=== PATIENT | female | born 1990 | race Caucasian/White ===

== ENCOUNTER 2017-04-18 05:25 | Inpatient (IN) | payer OTHER ==
[~2017-04-18 05:25] MED LIST: Sodium Chloride 0.9% 10 ML Syringe FLUSH PRN
[2017-04-18] MEDS: Lactated Ringers 1,000 ML IV SCH ×2 (05:55→06:35)
[2017-04-18] MEDS ORDERED: Metoclopramide 10 MG/2 ML SDV IVPUSH ONE (06:45)
[2017-04-18] MEDS ORDERED: Citric Acid/Sodium Citrate Solution 30 ML Cup PO ONE (06:45)
[2017-04-18] MEDS ORDERED: Bupivacaine 0.5% 30 ML SDV ONE (06:50)
[2017-04-18] MEDS ORDERED: Morphine PF 10 MG/10 ML SDV ONE (06:52)
--- NOTE | 2017-04-18 07:02 | PCM.PREANE ---
Preanesthetic Assessment - Anesthesia/Transfusion/Family Hx Anesthesia History: Prior Anesthesia Without Reaction Family History of Anesthesia Reaction: No Transfusion History: No Prior Transfusion(s) Intubation History: Unknown - Review of Systems General: No Symptoms Pulmonary: No Symptoms Cardiovascular: No Symptoms Gastrointestinal: No Symptoms (GERD) Neurological: No Symptoms Other: Reports: Diabetes (Gestational DM on glyburide am blood sugar=76) - Physical Assessment NPO Status Date: 04/17/17 NPO Status Time: 21:00 Pulse: 102 O2 Sat by Pulse Oximetry: 98 Respiratory Rate: 14 Blood Pressure: 120/75 Temperature: 37.0 C Vital Signs: Last Vital Signs Temp 37.0 C 04/18/17 05:40 Pulse 102 H 04/18/17 05:40 Resp 14 04/18/17 05:40 BP 120/75 04/18/17 05:40 Pulse Ox 98 04/18/17 05:40 Height: 1.52 m Weight: 91.626 kg ASA Class: 2 Mental Status: Alert & Oriented x3 Airway Class: Mallampati = 2 Dentition: Reports: Normal Dentition (bottom permanent retainer noted.), Caries Thyro-Mental Finger Breadths: 3 Mouth Opening Finger Breadths: 3 ROM/Head Extension: Full Lungs: Clear to Auscultation, Normal Respiratory Effort Cardiovascular: Regular Rate, Regular Rhythm, No Murmurs - Lab Values: Laboratory Last Values WBC 10.07 K/mm3 (3.98-10.04) H 04/17/17 10:50 RBC 4.24 M/mm3 (3.98-5.22) 04/17/17 10:50 Hgb 11.3 gm/L (11.2-15.7) 04/17/17 10:50 Hct 34.5 % (34.1-44.9) 04/17/17 10:50 MCV 81.4 fl (79.4-94.8) 04/17/17 10:50 MCH 26.7 pg (25.6-32.2) 04/17/17 10:50 MCHC 32.8 g/dl (32.2-35.5) 04/17/17 10:50 RDW Std Deviation 44.0 fL (36.4-46.3) 04/17/17 10:50 Plt Count 280 K/mm3 (182-369) 04/17/17 10:50 MPV 10.0 fl (9.4-12.3) 04/17/17 10:50 Neut % (Auto) 76.8 % (34.0-71.1) H 04/17/17 10:50 Lymph % (Auto) 16.3 % (19.3-51.7) L 04/17/17 10:50 [place] % (Auto) 6.2 % (4.7-12.5) 04/17/17 10:50 Eos % (Auto) 0.3 (0.7-5.8) L 04/17/17 10:50 Baso % (Auto) 0.1 % (0.1-1.2) 04/17/17 10:50 Neut # (Auto) 7.74 K/mm3 (1.56-6.13) H 04/17/17 10:50 Lymph # (Auto) 1.64 K/mm3 (1.18-3.74) 04/17/17 10:50 [place] # (Auto) 0.62 K/mm3 (0.24-0.36) H 04/17/17 10:50 Eos # (Auto) 0.03 K/mm3 (0.04-0.36) L 04/17/17 10:50 Baso # (Auto) 0.01 K/mm3 (0.01-0.08) 04/17/17 10:50 POC Glucose 76 mg/dL (70-105) 04/18/17 05:43 Blood Type O POSITIVE 04/17/17 10:50 Gel Antibody Screen Negative 04/17/17 10:50 Above labs reviewed and noted. 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: - Past Surgical History HEENT Surgical History: Reports: None - SUBSTANCE USE Smoking Status *Q: Never Smoker Tobacco Use Within Last Twelve Months: No Second Hand Smoke Exposure: No Days Per Week of Alcohol Use: 0 Recreational Drug Use History: No - HOME MEDS Home Medications: Home Meds Pnv No.122/Iron/Folic Acid [ Multi Tablet] 1 each PO DAILY 04/17/17 [ History] glyBURIDE [Glyburide] 2.5 mg PO BEDTIME 04/17/17 [History] - CURRENT (IN HOUSE) MEDS Current Meds: Current Medications Cefazolin Sodium/Dextrose 2 gm (/ Premix) 50 mls @ 100 mls/hr IV ONETIME ONE Stop: 04/18/17 08:14 Lactated Ringer's (Ringers, Lactated) 1,000 mls @ 125 mls/hr IV ASDIRECTED VANDANA Last Admin: 04/18/17 06:35 Dose: 125 mls/hr Oxytocin/Lactated Ringer's (Pitocin In Lr 10 Units/1,000 Ml) 10 unit in 1,000 mls @ 100 mls/hr IV ASDIRECTED VANDANA Sodium Chloride (Saline Flush) 10 ml FLUSH ASDIRECTED PRN PRN Reason: Keep Vein Open Discontinued Medications Citric Acid/Sodium Citrate (Bicitra Solution) 30 ml PO ONETIME ONE Stop: 04/18/17 06:46 Metoclopramide HCl (Reglan) 10 mg IVPUSH ONETIME ONE Stop: 04/18/17 06:46 Morphine Sulfate (Duramorph Pf) Confirm Administered Dose 10 mg .ROUTE .STK-MED ONE Stop: 04/18/17 06:53
[2017-04-18] MEDS ORDERED: Phenylephrine 1% 10 MG/ML SDV ONE (07:32)
[2017-04-18] MEDS ORDERED: Oxytocin 10 Units/1 ML SDV ONE (07:32)
[2017-04-18] MEDS ORDERED: Ondansetron 4 MG/2 ML SDV ONE (07:32)
[2017-04-18] MEDS ORDERED: ceFAZolin 1 GM Vial ONE (07:32)
[2017-04-18] MEDS ORDERED: Ketorolac 30 MG/ML SDV ONE (07:32)
[2017-04-18] MEDS ORDERED: Lactated Ringers 1,000 ML ONE (07:32)
--- NOTE | 2017-04-18 07:41 | HP ---
DATE OF ADMISSION: 04/18/2017 ADMISSION DIAGNOSIS: Term intrauterine , history of previous section with desire for repeat section. HISTORY OF PRESENT ILLNESS: The patient is a 27-year-old, 7 para 2-0-4-2, white female, who is admitted on 04/18/2017 for elective repeat section. She is 39 and 0/7th weeks gestational age with an YOKO of 04/25/2017 as based upon an ultrasound done at 9 and 0/7th weeks gestational age on 09/20/2016. This is supported by 2 other ultrasounds done on 10/11/2016 and 12/07/2016. She is admitted for elective repeat section. She has had 2 previous sections. The procedure, risks, benefits, and alternatives of care are discussed in detail with the patient. She appears to understand and wishes to proceed. A consent has been signed. 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 Menses are somewhat irregular. Not on control at the time of conception. Her last period was known. Her pregnancies include a full-term delivered on 01/25/2011 at 40 weeks' gestational age - 6 pounds 7 ounces - female, delivered in [place]. Child's name is Katharina. She had a for failure to progress after an induction. The patient had 3 miscarriages at 4 weeks, 12 weeks, and 4 weeks, in 06/2011, 09/2011 and in 03/2014. On 08/07/2014, the patient had a demise and was induced for vaginal delivery at 15 weeks' gestational age. On 08/10/2015, she delivered an 8 pounds 4 ounces male infant at 39 weeks' gestational age by repeat section. Child's name is Yannick Chen. The patient's course has been relatively unremarkable with the exception that she is a gestational diabetic and is reasonably well controlled on glyburide. She takes glyburide on a daily basis, 2.5 mg per day. The patient declined genetic evaluation. Her [place] Depression Screen score on 12/13/2016 was 2/30. She has history of Gardnerella vaginalis during - this was treated. She is group B strep negative. She has a history of 4 miscarriages as above. She is rubella nonimmune and MMR is recommended prior to discharge from the hospital. She was started on glyburide on 03/01/2017 for progressively worsening blood sugars with her gestational diabetes. The patient was first seen during her care on 10/11/2016 at 12 weeks' gestation. She is seen on a regular basis. Her weight gain was from 183 pounds up to 203 pounds for a 20-pound weight gain. Her vital signs were stable throughout the course, and her fundal height growth was appropriate. Towards the end, her blood sugars were in excellent control using glyburide and behavior modification with dietary restriction. Laboratory testing in showed her blood to be O positive and negative antibody screen. Her first visit labs showed a hemoglobin of 13.1 g/dL, platelets were 347. She was rubella nonimmune. RPR was nonreactive. Urine culture showed Gardnerella vaginalis for which she was treated. Her hepatitis B surface antigen and HIV assays were both negative. Second trimester laboratory testing showed a hemoglobin of 11.4 g/dL and platelets 300,000. Her 1-hour GTT was 150, and her 3-hour glucose tolerance test was abnormal with a fasting blood sugar of 104, a 1-hour glucose of 181, a 2-hour glucose of 151, and a 3-hour glucose of 124. Her group B strep screen is negative. PAST MEDICAL HISTORY: 1. Miscarriage x4. 2. History of infertility. PAST SURGICAL HISTORY: C-sections x2 in 2010 and 2016. FAMILY HISTORY: Positive for mother who is alive and well. Father is alive. One sister and one brother alive and well with children. Maternal grandmother secondary to lung cancer; she was a smoker. Maternal grandfather secondary to cancer - type unknown. Paternal grandmother with colon cancer - . Paternal grandfather , cause unknown. One sister has celiac disease since 2015. SOCIAL HISTORY: The patient is , is [employer] Work[employer]. 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 She is a high-school graduate. She does not smoke any tobacco. She does not take any alcohol or other drugs. They live in [place], [place]. REVIEW OF SYSTEMS: GENERAL: The patient is doing well. Baby has been active. SKIN: Negative. CARDIOVASCULAR: No shortness of breath or chest pain. RESPIRATORY: No infectious symptoms. BREASTS: Changes associated with only. GI: Negative. : Changes associated with term . MUSCULOSKELETAL: Occasional edema in the lower extremities. NEUROLOGICAL: Negative. PHYSICAL EXAMINATION: VITAL SIGNS: On last evaluation in , her blood pressure was 100/66. Weight was 203 with pregravid weight of 183. heart rate was 154. Her height upon admission for care was 5 feet 0 and weight was 185. Body mass index prepregnancy was 35.7. GENERAL: The patient is a well-developed, well-nourished, pleasant female of stated age, in no acute distress. SKIN: Warm, dry, without lesions. HEENT, NECK, AND BACK: Within normal limits. LUNGS: Clear with good breath sounds in all lung shea. CARDIOVASCULAR: Shows regular rate and rhythm without murmurs. BREASTS: Deferred having been done at first visit and found to be normal. ABDOMEN: Protuberant with with last fundal height 39+ cm. Baby in a vertex presentation by Hardeep maneuvers. : Her last cervical exam was done on 03/27/2017 and shows cervix to be closed, long, posterior and firm. EXTREMITIES: Show no significant edema. NEUROLOGICAL: Grossly within normal limits. ASSESSMENT: 1. Term intrauterine at 39 weeks and 0 days upon admission for elective repeat section. Procedure, risks, benefits, followup and alternatives of care are discussed in detail with the patient. She appears to understand, wishes to proceed and has signed the consent. 2. Risk factors for surgery include history of previous section x2, and risks for include history of previous miscarriages. 3. The patient plans to breastfeed. 4. Gestational diabetic, under reasonable control with oral glyburide therapy. 5. Routine labs to be drawn. PLAN: 1. Repeat lower uterine segment transverse section through Pfannenstiel skin incision under spinal block. 2. DVT prophylaxis with SCDs. 3. Infection prophylaxis with Ancef 2 g IV preop. 4. Labs to consist of CBC, type and screen, and urinalysis. MMODAL /[id number]
[2017-04-18] MEDS ORDERED: Measles, Mumps & Rubella Vaccine 0.5 ML SDV SUBCUT ONE (07:43)
[2017-04-18] MEDS ORDERED: ceFAZolin 2 GM in Premix Bag 1 BAG IV ONE (07:45)
[2017-04-18] MEDS ORDERED: Oxytocin/Lactated Ringers 10 UNIT/1,000 ML BAG IV SCH (07:45)
[2017-04-18] MEDS ORDERED: diphenhydrAMINE 50 MG/ML SDV IVPUSH PRN ×2 (08:07→09:31)
[2017-04-18] MEDS ORDERED: Meperidine PF 50 MG/ML Syringe IVPUSH PRN (08:07)
[2017-04-18] MEDS ORDERED: ePHEDrine 50 MG/ML SDV IVPUSH PRN ×2 (08:07→09:31)
[2017-04-18] MEDS ORDERED: Ondansetron 4 MG/2 ML SDV IVPUSH PRN (08:07)
[2017-04-18] MEDS ORDERED: fentaNYL 100 MCG/2 ML SDV IVPUSH PRN (08:07)
[2017-04-18] MEDS ORDERED: HYDROmorphone 0.5 MG/0.5 ML Syringe IVPUSH PRN (08:07)
[2017-04-18] MEDS ORDERED: Phenylephrine 1 MG in Sodium Chloride 0.9% 10 ML IV SCH (08:15)
[2017-04-18] MEDS ORDERED: fentaNYL 100 MCG/2 ML SDV ONE (08:30)
--- NOTE | 2017-04-18 08:41 | PCM.OPNOTE ---
- General Post-Op/Procedure Note Date of Surgery/Procedure: 04/18/17 Operative Procedure(s): Repeat lower uterine segment transverse section through Pfannenstiel skin incision Findings: Minimal adhesions noted. The lower uterine segment was approximately 3 mm thick. Uterus tubes ovaries were normal in appearance and consistent with term . Baby is in a vertex presentation with face up consistent with occiput posterior position. Amniotic fluid was clear. Apgars were 7 and 9. Baby boy was born at 0805 hrs. on 04/18/2017. Three-vessel cord. Placenta delivered in a Rudi presentation, intact and complete. Cervix was 2 cm dilated just felt to be adequate to allow egress of blood. Pre Op Diagnosis: 39-0/7 week intrauterine , history of previous C- section 2 with desire for repeat section Post-Op Diagnosis: Same with delivery of viable, schumacher, male infant with Apgars of 8 and 9, weight 7 lbs. 4 oz., At 0805 hrs. on 04/18/2017. Anesthesia Technique: Spinal Other Anesthesia Type: Marcaine 0.5%20 mL local Primary Surgeon: Johan Roper Secondary Surgeon: Brandon Palma Anesthesia Provider: Sofia Amaya Reason Laboratory Apparatus Glass Grinder Was Necessary: Retraction, patient safety Role of Laboratory Apparatus Glass Grinder: Retraction, patient safety Fluid Replacement, Intraop: 750 Output, Urine Amount: 250 Drain/Tube Comments:: Indwelling bladder catheter Complications: None Condition: Good Free Text/Narrative:: Surgery duration: 33 minutes Procedure: Patient was transferred to the room and placed in a sitting position. Spinal anesthesia was administered. After confirmation of adequate anesthesia patient was placed in a supine position with a wedge under her right side to facilitate left lateral positioning. The patient was prepped and draped in usual fashion after Cunningham catheter was already placed . The anesthetic was checked and found to be adequate. 20 mL of Marcaine 0.5% was injected locally in the Pfannenstiel incision site. The Pfannenstiel skin incision was then made carried down to skin subcutaneous and fascial layers. The fascia was then undermined superiorly and inferiorly to allow for adequate operating room the recti muscles midline and preperitoneal fat was bluntly dissected. Peritoneal cavity was entered longitudinally. The vesicouterine peritoneum was then incised transversely and bladder flap was developed. Myometrium was incised transversely to the level of the amniotic sac. Is found to be only 3-4 mm thick. This incision was extended bilaterally in a blunt fashion. The amniotic sac was then ruptured resulting in clear amniotic fluid. A hand is placed in the low uterine segment and the baby's head was brought forth through the incision. The baby was completely delivered using fundal pressure in a routine fashion. The nose and mouth were bulb suctioned. Baby's cord was clamped x2 cut and baby was handed off to attending marine insulator Dr Ravi. Placenta was expressed after cord blood was obtained. Uterus was then exteriorized to allow for easier closure. The cervix was assessed and found to be dilated adequately to allow egress of blood. The uterus was closed in 2 layers. The first layer a running locked suture of 0 Monocryl, the second layer a running locked vertical mattress suture of 0 Monocryl. [id number] suture was placed at the left incision to control 1 bleeder. Hemostasis confirmed at this time. Sponge instrument needle counts are correct. The uterus was returned to the abdominal cavity and lateral gutters were cleared of blood. Once again sponge needle counts are correct. The anterior abdominal wall was closed with a #1 PDS suture from angle to angle. The subcutaneous area was found to be free of any bleeders. interrupted sutures of 3-0 Monocryl were used to reapproximate the subcutaneous layer.Skin was closed with a running subcuticular stitch of 3-0 Monocryl in a vertical mattress suture fashion using a [place] needle. Prineo mesh/glue was then applied to further approximate the incision. It should be noted that patient received 2 g of Ancef preoperatively for infection prophylaxis and had Pitocin infused after delivery of the placenta to facilitate uterine contraction. She also had sequential compression stockings in place for DVT prophylaxis. Patient was discharged from the operating room in satisfactory condition.
--- NOTE | 2017-04-18 08:45 | PCM.POSTAN ---
POST ANESTHESIA ASSESSMENT - MENTAL STATUS Mental Status: Alert - VITAL SIGNS Pulse Rate: 88 SaO2: 98 Resp Rate: 14 Blood Pressure: 102/62 Temperature: 36.0 C - RESPIRATORY Respiratory Status: Respiratory Rate WNL, Airway Patent, O2 Saturation Stable, Supplemental Oxygen - CARDIOVASCULAR CV Status: Pulse Rate WNL, Blood Pressure Stable - GASTROINTESTINAL GI Status: No Symptoms - POST OP HYDRATION Hydration Status: Adequate & Stable
[2017-04-18] MEDS ORDERED: Lanolin 100% Cream 7 GM Tube TOP PRN (09:31)
[2017-04-18] MEDS ORDERED: Docusate Sodium 100 MG Cap PO PRN (09:31)
[2017-04-18] MEDS ORDERED: Naloxone 0.4 MG/ML SDV IVPUSH PRN (09:31)
[2017-04-18] MEDS ORDERED: Ondansetron 4 MG/2 ML SDV IV PRN (09:31)
[2017-04-18] MEDS ORDERED: Dextrose 5%-Lactated Ringers 1,000 ML IV SCH (09:31)
[2017-04-18] MEDS ORDERED: Ibuprofen 800 MG Tab PO SCH (14:00)
[2017-04-18] MEDS: Ketorolac 30 MG/ML SDV IVPUSH SCH ×2 (16:25→22:02)
[2017-04-18] MEDS: Simethicone 80 MG Tab.Chew PO SCH ×3 (19:42→22:02)
[2017-04-18] MEDS: Prenatal Multivitamin with Calcium/Folic Acid/Iron Tab PO SCH (19:42)
[2017-04-19] MEDS: Ketorolac 30 MG/ML SDV IVPUSH SCH (04:00)
--- NOTE | 2017-04-19 08:29 | PCM.SN ---
- Free Text/Narrative Note: day one/postop day once Afebrile, chest clear, cardiac exam normal. Abdomen soft. Uterus involuting normally. Incision normal. No heavy vaginal bleeding. No leg cramping. Reviewed Labs. Probably home tomorrow.
[2017-04-19] MEDS: Ibuprofen 800 MG Tab PO SCH ×2 (09:14→18:00)
[2017-04-19] MEDS: Simethicone 80 MG Tab.Chew PO SCH ×4 (09:15→22:11)
[2017-04-19] MEDS: Prenatal Multivitamin with Calcium/Folic Acid/Iron Tab PO SCH (09:15)
[2017-04-19] MEDS: Acetaminophen/oxyCODONE 325-5 MG Tab PO PRN ×3 (12:00→22:11)
[2017-04-20] MEDS: Ibuprofen 800 MG Tab PO SCH ×2 (02:38→08:50)
[2017-04-20 02:43] VITALS: BP 109/62
[2017-04-20] MEDS: Acetaminophen/oxyCODONE 325-5 MG Tab PO PRN (05:34)
--- NOTE | 2017-04-20 08:14 | PCM.DCSUM1 ---
Discharge Summary - Hospital Course Free Text/Narrative:: [facility] Post-Op/Procedure Note Patient Name: FAUSTO ACHARYA Date of : 89 Patient Status: Inpatient Attending Provider: Johan Roper Date: 04/18/17 08:36 Initialization Date: 04/18/17 08:36 - General Post-Op/Procedure Note Date of Surgery/Procedure: 04/18/17 Operative Procedure(s): Repeat lower uterine segment transverse section through Pfannenstiel skin incision Findings: Minimal adhesions noted. The lower uterine segment was approximately 3 mm thick. Uterus tubes ovaries were normal in appearance and consistent with term . Baby is in a vertex presentation with face up consistent with occiput posterior position. Amniotic fluid was clear. Apgars were 7 and 9. Baby boy was born at 0805 hrs. on 04/18/2017. Three-vessel cord. Placenta delivered in a Rudi presentation, intact and complete. Cervix was 2 cm dilated just felt to be adequate to allow egress of blood. Pre Op Diagnosis: 39-0/7 week intrauterine , history of previous C- section 2 with desire for repeat section Post-Op Diagnosis: Same with delivery of viable, schumacher, male with Apgars of 8 and 9, weight 7 lbs. 4 oz., At 0805 hrs. on 04/18/2017. Anesthesia Technique: Spinal Other Anesthesia Type: Marcaine 0.5%20 mL local Primary Surgeon: Johan Roper Secondary Surgeon: Brandon Palma Anesthesia Provider: Sofia Amaya Reason Precision Assembler Was Necessary: Retraction, patient safety Role of Precision Assembler: Retraction, patient safety Fluid Replacement, Intraop: 750 Output, Urine Amount: 250 Drain/Tube Comments:: Indwelling bladder catheter Complications: None Condition: Good Free Text/Narrative:: Surgery duration: 33 minutes Procedure: Patient was transferred to the room and placed in a sitting position. Spinal anesthesia was administered. After confirmation of adequate anesthesia patient was placed in a supine position with a wedge under her right side to facilitate left lateral positioning. The patient was prepped and draped in usual fashion after Cunningham catheter was already placed . The anesthetic was checked and found to be adequate. 20 mL of Marcaine 0.5% was injected locally in the Pfannenstiel incision site. The Pfannenstiel skin incision was then made carried down to skin subcutaneous and fascial layers. The fascia was then undermined superiorly and inferiorly to allow for adequate operating room the recti muscles midline and preperitoneal fat was bluntly dissected. Peritoneal cavity was entered longitudinally. The vesicouterine peritoneum was then incised transversely and bladder flap was developed. Myometrium was incised transversely to the level of the amniotic sac. Is found to be only 3-4 mm thick. This incision was extended bilaterally in a blunt fashion. The amniotic sac was then ruptured resulting in clear amniotic fluid. A hand is placed in the low uterine segment and the baby's head was brought forth through the incision. The baby was completely delivered using fundal pressure in a routine fashion. The nose and mouth were bulb suctioned. Baby's cord was clamped x2 cut and baby was handed off to attending receptionist clerk Dr Ravi. Placenta was expressed after cord blood was obtained. Uterus was then exteriorized to allow for easier closure. The cervix was assessed and found to be dilated adequately to allow egress of blood. The uterus was closed in 2 layers. The first layer a running locked suture of 0 Monocryl, the second layer a running locked vertical mattress suture of 0 Monocryl. Ddevto-kc-[id number] suture was placed at the left incision to control 1 bleeder. Hemostasis confirmed at this time. Sponge instrument needle counts are correct. The uterus was returned to the abdominal cavity and lateral gutters were cleared of blood. Once again sponge needle counts are correct. The anterior abdominal wall was closed with a #1 PDS suture from angle to angle. The subcutaneous area was found to be free of any bleeders. interrupted sutures of 3-0 Monocryl were used to reapproximate the subcutaneous layer.Skin was closed with a running subcuticular stitch of 3-0 Monocryl in a vertical mattress suture fashion using a Checo needle. Prineo mesh/glue was then applied to further approximate the incision. It should be noted that patient received 2 g of Ancef preoperatively for infection prophylaxis and had Pitocin infused after delivery of the placenta to facilitate uterine contraction. She also had sequential compression stockings in place for DVT prophylaxis. Patient was discharged from the operating room in satisfactory condition. HPI Initial Comments: [facility] Post-Op/Procedure Note Patient Name: FAUSTO ACHARYA Date of : 89 Patient Status: Inpatient Attending Provider: Johan Roper Date: 04/18/17 08:36 Initialization Date: 04/18/17 08:36 - General Post-Op/Procedure Note Date of Surgery/Procedure: 04/18/17 Operative Procedure(s): Repeat lower uterine segment transverse section through Pfannenstiel skin incision Findings: Minimal adhesions noted. The lower uterine segment was approximately 3 mm thick. Uterus tubes ovaries were normal in appearance and consistent with term . Baby is in a vertex presentation with face up consistent with occiput posterior position. Amniotic fluid was clear. Apgars were 7 and 9. Baby boy was born at 0805 hrs. on 04/18/2017. Three-vessel cord. Placenta delivered in a Rudi presentation, intact and complete. Cervix was 2 cm dilated just felt to be adequate to allow egress of blood. Pre Op Diagnosis: 39-0/7 week intrauterine , history of previous C- section 2 with desire for repeat section Post-Op Diagnosis: Same with delivery of viable, schumacher, male infant with Apgars of 8 and 9, weight 7 lbs. 4 oz., At 0805 hrs. on 04/18/2017. Anesthesia Technique: Spinal Other Anesthesia Type: Marcaine 0.5%20 mL local Primary Surgeon: Johan Roper Secondary Surgeon: Brandon Palma Anesthesia Provider: Sofia Amaya Reason Precision Assembler Was Necessary: Retraction, patient safety Role of Precision Assembler: Retraction, patient safety Fluid Replacement, Intraop: 750 Output, Urine Amount: 250 Drain/Tube Comments:: Indwelling bladder catheter Complications: None Condition: Good Free Text/Narrative:: Surgery duration: 33 minutes Procedure: Patient was transferred to the room and placed in a sitting position. Spinal anesthesia was administered. After confirmation of adequate anesthesia patient was placed in a supine position with a wedge under her right side to facilitate left lateral positioning. The patient was prepped and draped in usual fashion after Cunningham catheter was already placed . The anesthetic was checked and found to be adequate. 20 mL of Marcaine 0.5% was injected locally in the Pfannenstiel incision site. The Pfannenstiel skin incision was then made carried down to skin subcutaneous and fascial layers. The fascia was then undermined superiorly and inferiorly to allow for adequate operating room the recti muscles midline and preperitoneal fat was bluntly dissected. Peritoneal cavity was entered longitudinally. The vesicouterine peritoneum was then incised transversely and bladder flap was developed. Myometrium was incised transversely to the level of the amniotic sac. Is found to be only 3-4 mm thick. This incision was extended bilaterally in a blunt fashion. The amniotic sac was then ruptured resulting in clear amniotic fluid. A hand is placed in the low uterine segment and the baby's head was brought forth through the incision. The baby was completely delivered using fundal pressure in a routine fashion. The nose and mouth were bulb suctioned. Baby's cord was clamped x2 cut and baby was handed off to attending receptionist clerk Dr Ravi. Placenta was expressed after cord blood was obtained. Uterus was then exteriorized to allow for easier closure. The cervix was assessed and found to be dilated adequately to allow egress of blood. The uterus was closed in 2 layers. The first layer a running locked suture of 0 Monocryl, the second layer a running locked vertical mattress suture of 0 Monocryl. Lzrqtn-qz-keepc suture was placed at the left incision to control 1 bleeder. Hemostasis confirmed at this time. Sponge instrument needle counts are correct. The uterus was returned to the abdominal cavity and lateral gutters were cleared of blood. Once again sponge needle counts are correct. The anterior abdominal wall was closed with a #1 PDS suture from angle to angle. The subcutaneous area was found to be free of any bleeders. interrupted sutures of 3-0 Monocryl were used to reapproximate the subcutaneous layer.Skin was closed with a running subcuticular stitch of 3-0 Monocryl in a vertical mattress suture fashion using a Checo needle. Prineo mesh/glue was then applied to further approximate the incision. It should be noted that patient received 2 g of Ancef preoperatively for infection prophylaxis and had Pitocin infused after delivery of the placenta to facilitate uterine contraction. She also had sequential compression stockings in place for DVT prophylaxis. Patient was discharged from the operating room in satisfactory condition. Brief History: [facility] . Post-Op/Procedure Note. Patient Name: FAUSTO ACHARYA Record Number: [id number]. Date of : Patient Status: Inpatient. Attending Provider: Johan Roper FAccount Number: [id number]. Date: 04/18/17 08:36Initialization Date: 04/18/17 08:36. - General Post-Op/Procedure Note. Date of Surgery/Procedure: 04/18/17. Operative Procedure(s): Repeat lower uterine segment transverse section through Pfannenstiel skin incision. Findings: Minimal adhesions noted. The lower uterine segment was approximately 3 mm thick. Uterus tubes ovaries were normal in appearance and consistent with term . Baby is in a vertex presentation with face up consistent with occiput posterior position. Amniotic fluid was clear. Apgars were 7 and 9. Baby boy was born at 0805 hrs. on 04/18/2017. Three-vessel cord. Placenta delivered in a Rudi presentation, intact and complete. Cervix was 2 cm dilated just felt to be adequate to allow egress of blood. Pre Op Diagnosis: 39-0/7 week intrauterine , history of previous 2 with desire for repeat section. Post-Op Diagnosis: Same with delivery of viable, schumacher, male with Apgars of 8 and 9, weight 7 lbs. 4 oz., At 0805 hrs. on 04/18/2017. Anesthesia Technique: Spinal. Other Anesthesia Type: Marcaine 0.5%20 mL local. Primary Surgeon: Johan Roper. Secondary Surgeon: Brandon Palma. Anesthesia Provider: Sofia Amaya. Reason Precision Assembler Was Necessary: Retraction, patient safety. Role of Precision Assembler: Retraction, patient safety. Fluid Replacement, Intraop: 750. Output, Urine Amount: 250. Drain/Tube Comments:: Indwelling bladder catheter. Complications: None. Condition: Good. Free Text/Narrative:: Surgery duration: 33 minutes. Procedure: Patient was transferred to the room and placed in a sitting position. Spinal anesthesia was administered. After confirmation of adequate anesthesia patient was placed in a supine position with a wedge under her right side to facilitate left lateral positioning. The patient was prepped and draped in usual fashion after Cunningham catheter was already placed . The anesthetic was checked and found to be adequate. 20 mL of Marcaine 0.5% was injected locally in the Pfannenstiel incision site. The Pfannenstiel skin incision was then made carried down to skin subcutaneous and fascial layers. The fascia was then undermined superiorly and inferiorly to allow for adequate operating room the recti muscles midline and preperitoneal fat was bluntly dissected. Peritoneal cavity was entered longitudinally. The vesicouterine peritoneum was then incised transversely and bladder flap was developed. Myometrium was incised transversely to the level of the amniotic sac. Is found to be only 3-4 mm thick. This incision was extended bilaterally in a blunt fashion. The amniotic sac was then ruptured resulting in clear amniotic fluid. A hand is placed in the low uterine segment and the baby's head was brought forth through the incision. The baby was completely delivered using fundal pressure in a routine fashion. The nose and mouth were bulb suctioned. Baby's cord was clamped x2 cut and baby was handed off to attending receptionist clerk Dr Ravi. Placenta was expressed after cord blood was obtained. Uterus was then exteriorized to allow for easier closure. The cervix was assessed and found to be dilated adequately to allow egress of blood. The uterus was closed in 2 layers. The first layer a running locked suture of 0 Monocryl, the second layer a running locked vertical mattress suture of 0 Monocryl. Vkblbz-ce-xcjvg suture was placed at the left incision to control 1 bleeder. Hemostasis confirmed at this time. Sponge instrument needle counts are correct. The uterus was returned to the abdominal cavity and lateral gutters were cleared of blood. Once again sponge needle counts are correct. The anterior abdominal wall was closed with a #1 PDS suture from angle to angle. The subcutaneous area was found to be free of any bleeders. interrupted sutures of 3-0 Monocryl were used to reapproximate the subcutaneous layer.Skin was closed with a running subcuticular stitch of 3-0 Monocryl in a vertical mattress suture fashion using a Checo needle. Prineo mesh /glue was then applied to further approximate the incision. It should be noted that patient received 2 g of Ancef preoperatively for infection prophylaxis and had Pitocin infused after delivery of the placenta to facilitate uterine contraction. She also had sequential compression stockings in place for DVT prophylaxis. Patient was discharged from the operating room in satisfactory condition. - Discharge Data Discharge Date: 04/20/17 Discharge Disposition: Home, Self-Care 01 Condition: Good - Discharge Diagnosis/Problem(s) (1) 39 weeks gestation of SNOMED Code(s): 76796139 ICD Code: Z3A.39 - 39 WEEKS GESTATION OF Status: Acute Current Visit: Yes (2) Delivery by elective section SNOMED Code(s): 831608183 ICD Code: O82 - ENCOUNTER FOR DELIVERY WITHOUT INDICATION Status: Acute Current Visit: Yes (3) Gestational diabetes SNOMED Code(s): 14653642 ICD Code: O24.419 - GESTATIONAL DIABETES MELLITUS IN , UNSP CONTROL Status: Acute Current Visit: Yes Qualifiers: Gestational diabetes mellitus control: oral hypoglycemic-controlled Trimester: third trimester Qualified Code(s): O24.415 - Gestational diabetes mellitus in , controlled by oral hypoglycemic drugs - Patient Summary/Data Operative Procedure(s) Performed: Repeat lower uterine segment transverse section through Pfannenstiel skin incision Complications: None Consults: None Hospital Course: Uneventful - Patient Instructions Diet: Diabetic Diet Driving: Do Not Drive (2 weeks) Showering/Bathing: May Shower, No Tub Bathing/Swimming (6 weeks) Wound/Incision Care: Keep Operative Site/Wound Site Clean and Dry Notify Provider of: Fever, Increased Pain, Swelling and Redness, Drainage, Nausea and/or Vomiting - Discharge Plan Prescriptions/Med Rec: Acetaminophen/oxyCODONE [Percocet 325-5 MG] 1 tab PO Q6H PRN #20 tablet PRN Reason: Pain Home Medications: Home Meds Pnv No.122/Iron/Folic Acid [ Multi Tablet] 1 each PO DAILY 04/17/17 [ History] Acetaminophen/oxyCODONE [Percocet 325-5 MG] 1 tab PO Q6H PRN #20 tablet [Rx] Docusate Sodium [Colace] 100 mg PO Q12H PRN cap 04/20/17 [Rx] Ibuprofen [IJD: Ibuprofen] 800 mg PO Q8H tablet 04/20/17 [Rx] Lanolin [Lansinoh HPA] 1 applic TOP ASDIRECTED PRN tube 04/20/17 [Rx] Simethicone 80 mg PO PCBED tab.chew 04/20/17 [Rx] Referrals: Johan Roper MD [Physician] - (2 weeks) - Discharge Summary/Plan Comment DC Time >30 min.: No - Patient Data Vitals - Most Recent: Last Vital Signs Temp 97.5 F 04/20/17 02:36 Pulse 93 04/20/17 02:36 Resp 15 04/20/17 02:36 BP 109/62 04/20/17 02:36 Pulse Ox 98 04/20/17 02:36 Weight - Most Recent: 202 lb Med Orders - Current: Current Medications Diphenhydramine HCl (Benadryl) 25 mg IVPUSH Q6H PRN PRN Reason: pruritis Diphenhydramine HCl (Benadryl) 25 mg IVPUSH Q6H PRN PRN Reason: Itching or Nausea Docusate Sodium (Colace) 100 mg PO Q12H PRN PRN Reason: Constipation Last Admin: 04/19/17 12:00 Dose: 100 mg Emollient Ointment (Lansinoh Hpa) 0 gm TOP ASDIRECTED PRN PRN Reason: Sore Nipples Ephedrine Sulfate (Ephedrine Sulfate) 5 mg IVPUSH ASDIRECTED PRN PRN Reason: Hypotension Ephedrine Sulfate (Ephedrine Sulfate) 5 mg IVPUSH SEECOMMENT PRN PRN Reason: Other Fentanyl (Sublimaze) 50 mcg IVPUSH Q5M PRN PRN Reason: Pain Hydromorphone HCl (Dilaudid) 0.5 mg IVPUSH Q15M PRN PRN Reason: severe pain Phenylephrine HCl 1 mg/ Sodium (Chloride) 10.1 mls @ 1 mls/sec IV TITRATE [facility] PRN Reason: Protocol Ibuprofen (Motrin) 800 mg PO Q8H [facility] Last Admin: 04/20/17 02:38 Dose: 800 mg Meperidine HCl (Demerol) 12.5 mg IVPUSH ONETIME PRN PRN Reason: shivering Naloxone HCl (Narcan) 0.1 mg IVPUSH SEECOMMENT PRN PRN Reason: Respiratory Depression Ondansetron HCl (Zofran) 4 mg IVPUSH ONETIME PRN PRN Reason: Nausea/Vomiting Ondansetron HCl (Zofran) 4 mg IV Q4H PRN PRN Reason: Nausea/Vomiting Oxycodone/Acetaminophen (Percocet 325-5 Mg) 2 tab PO Q4H PRN PRN Reason: Pain (moderate 4-6) Last Admin: 04/20/17 05:34 Dose: 2 tab Prenat Multivit/Panora/Iron/Folic Ac ( Plus Iron) 1 each PO DAILY [facility] Last Admin: 04/19/17 09:15 Dose: 1 each Simethicone (Simethicone) 80 mg PO PCBED [facility] Last Admin: 04/19/17 22:11 Dose: 80 mg Discontinued Medications Bupivacaine HCl (Marcaine 0.5%) Confirm Administered Dose 30 ml .ROUTE .STK-MED ONE Stop: 04/18/17 06:51 Last Admin: 04/18/17 08:00 Dose: 20 ml Cefazolin Sodium (Ancef) Confirm Administered Dose 2 gm .ROUTE .STK-MED ONE Stop: 04/18/17 07:33 Citric Acid/Sodium Citrate (Bicitra Solution) 30 ml PO ONETIME ONE Stop: 04/18/17 06:46 Last Admin: 04/18/17 07:01 Dose: 30 ml Fentanyl (Sublimaze) Confirm Administered Dose 100 mcg .ROUTE .STK-MED ONE Stop: 04/18/17 08:31 Cefazolin Sodium/Dextrose 2 gm (/ Premix) 50 mls @ 100 mls/hr IV ONETIME ONE Stop: 04/18/17 08:14 Last Admin: 04/18/17 19:45 Dose: Not Given Lactated Ringer's (Ringers, Lactated) 1,000 mls [facility] 125 [facility] Admin: 04/18/17 06:35 Dose: 125 mls/hr Oxytocin/Lactated Ringer's (Pitocin In Lr 10 Units/1,000 Ml) 10 unit in 1,000 mls @ 100 mls/hr IV ASDIRECTED [facility] Lactated Ringer's (Ringers, Lactated) Confirm Administered Dose 1,000 mls @ as directed .ROUTE .STK-MED ONE Stop: 04/18/17 07:33 Dextrose/Lactated Ringer's (Dextrose 5%-Lactated Ringers) 1,000 mls @ 125 mls/ hr IV ASDIRECTED [facility] Stop: 04/18/17 17:30 Last Admin: 04/18/17 12:28 Dose: 125 mls/hr Ibuprofen (Motrin) 800 mg PO Q8H [facility] Last Admin: 04/18/17 19:45 Dose: Not Given Ketorolac Tromethamine (Toradol) Confirm Administered Dose 30 mg .ROUTE .STK- MED ONE Stop: 04/18/17 07:33 Ketorolac Tromethamine (Toradol) 30 mg IVPUSH Q6H VANDANA Stop: 04/19/17 03:16 Last Admin: 04/19/17 04:00 Dose: 30 mg Measles/Mumps/Rubella Vaccine Live (M-M-R Ii Vaccine) 0.5 ml SUBCUT .ONCE ONE Stop: 04/18/17 07:44 Metoclopramide HCl (Reglan) 10 mg IVPUSH ONETIME ONE Stop: 04/18/17 06:46 Last Admin: 04/18/17 07:01 Dose: 10 mg Morphine Sulfate (Duramorph Pf) Confirm Administered Dose 10 mg .ROUTE .STK-MED ONE Stop: 04/18/17 06:53 Ondansetron HCl (Zofran) Confirm Administered Dose 4 mg .ROUTE .STK-MED ONE Stop: 04/18/17 07:33 Oxytocin (Pitocin) Confirm Administered Dose 10 unit .ROUTE .STK-MED ONE Stop: 04/18/17 07:33 Phenylephrine HCl (Hayder-Synephrine) Confirm Administered Dose 10 mg .ROUTE .STK- MED ONE Stop: 04/18/17 07:33 Sodium Chloride (Saline Flush) 10 ml FLUSH ASDIRECTED PRN PRN Reason: Keep Vein Open *Q Meaningful Use (DIS) - VTE *Q VTE Criteria *Q: - Stroke *Q Stroke Criteria *Q: - AMI *Q AMI Criteria *Q:
[2017-04-20] MEDS: Simethicone 80 MG Tab.Chew PO SCH (08:50)
[2017-04-20] MEDS: Prenatal Multivitamin with Calcium/Folic Acid/Iron Tab PO SCH (08:51)
== END 2017-04-20 09:18 | disposition home or self-care (01) | DRG 766 ==
LOC: JD.OB 05:25
PROVIDERS: ADMIT Obstetrics & Gynecology; ATTEND Obstetrics & Gynecology
PROC: 10D00Z1 Extraction of Products of Conception, Low, Open Approach (ICD-10-PCS; principal; 2017-04-18)
DX: O34.211 Maternal care for low transverse scar from previous cesarean delivery (principal); N85.8 Other specified noninflammatory disorders of uterus; O24.425 Gestational diabetes mellitus in childbirth, controlled by oral hypoglycemic drugs; Z3A.39 39 weeks gestation of pregnancy; Z37.0 Single live birth
CPT/HCPCS: 01961; 36415; 82962; 85025; 86850; 86900; 86901; 90471; 90707; 94762; A9270-GY; J0690; J1885; J2270; J2370; J2405; J2590; J2765; J3010; J7042; J7120

== ENCOUNTER 2019-05-29 01:21 | Emergency (ER) | payer BC, OTHER ==
[2019-05-29 01:42] VITALS: BP 143/80; PULSE 103
[2019-05-29] MEDS ORDERED: Penicillin V Potassium 500 MG Tab PO STA (01:55)
--- NOTE | 2019-05-29 01:58 | EDM.PDOC ---
ED HPI GENERAL MEDICAL PROBLEM - General Chief Complaint: ENT Problem Stated Complaint: tooth pain Time Seen by Provider: 05/29/19 01:34 Source of Information: Reports: Patient History Limitations: Reports: No Limitations - History of Present Illness INITIAL COMMENTS - FREE TEXT/NARRATIVE: Mrs. Workman is a pleasant 29-year-old woman with no chronic medical issues, who states that she developed an upper left toothache yesterday morning, 05/28/2019. Cold air makes the tooth hurt worse. She has not had a fever or oral drainage. No known injury to the tooth. No prior problems with this tooth. The patient states that she took 800 mg of ibuprofen around 20:30 , then Tylenol around 22:00, with inadequate pain relief. She states that she has limited to see a dentist tomorrow, 05/30/2019. The patient does not have a PCP. Her ETL ANALYST DEVELOPER is Dr. Johan Roper. She has not received an influenza vaccine this season, but is willing to receive one here. Left Oral/Mouth Pain Score (Numeric/FACES): 7 - Related Data Allergies Allergy/AdvReac Type Severity Reaction Status Date / Time No Known Allergies Allergy Verified 05/29/19 01:28 Home Meds: Home Meds Naproxen 500 mg PO Q12H PRN #20 tablet 05/29/19 [Rx] Penicillin V Potassium 500 mg PO Q6HR #8 tab 05/29/19 [Rx] Past Medical History HEENT History: Reports: Impaired Vision ETL ANALYST DEVELOPER History: Reports: Endocrine/Metabolic History: Reports: Obesity/BMI 30+ - Past Surgical History Female Surgical History: Reports: Section (x 3) Social & Family History - Family History Family Medical History: Noncontributory - Tobacco Use Smoking Status *Q: Never Smoker - Caffeine Use Caffeine Use: Reports: Coffee - Alcohol Use Alcohol Use History: No - Recreational Drug Use Recreational Drug Use: No - Living Situation & Occupation Living situation: Reports: , with Spouse, with Family (3 kids) Occupation: Unemployed ED ROS ENT - Review of Systems Review Of Systems: Comprehensive ROS is negative, except as noted in HPI. ED EXAM, ENT - Physical Exam Exam: See Below Exam Limited By: No Limitations General Appearance: Alert, WD/WN, No Apparent Distress Eye Exam: Bilateral Eye: EOMI, Normal Inspection Ears: Normal External Exam, Normal Canal, Hearing Grossly Normal, Normal TMs Nose: Normal Inspection, Normal Mucousa, No Blood Mouth/Throat: Normal Gums, Normal Lips, Normal Oropharynx, Other (Teeth #1, 2 absent. Teeth #3, 4 with metal fillings. Teeth #12, 13, 14, 15 with metal fillings. Tooth #15 (the tooth of concern) with erosion of the buccal aspect of the tooth, exposing the metallic filling. Tooth #17 absent. Teeth #18, 19 with metallic fillings. Tooth #21 with decay of the buccal aspect of the tooth. Teeth #22, 23, and 24 are banded together. Teeth #30, 31 with metallic fillings. Tooth #32 with incomplete eruption. There is no visible gingival swelling or pointing.) Head: Atraumatic, Normocephalic Neck: Normal Inspection, Supple, Non-Tender, Full Range of Motion. No: Lymphadenopathy (L), Lymphadenopathy (R) Course - Vital Signs Last Recorded V/S: Last Vital Signs Temp 36.4 C 05/29/19 01:25 Pulse 103 H 05/29/19 01:25 Resp 16 05/29/19 01:25 BP 143/80 H 05/29/19 01:25 Pulse Ox 100 05/29/19 01:25 - Orders/Labs/Meds Orders: Active Orders 24 hr Category Date Time Status Influenza Vaccine Charge [RC] .DISCHARGE Care 05/29/19 01:30 Active Influenza Vaccine Charge [RC] .DISCHARGE Care 05/29/19 01:56 Inactive Meds: Medications Discontinued Medications Generic Name Dose Route Start Last Admin Trade Name Freq PRN Reason Stop Dose Admin Influenza Virus Vaccine 60 mcg 05/29/19 02:00 05/29/19 02:14 Fluzone Quad 5939-2821 Syringe IM 05/29/19 02:01 60 mcg .ONCE ONE Administration Penicillin V Potassium 500 mg 05/29/19 01:55 05/29/19 02:14 Veetids PO 05/29/19 01:56 500 mg ONETIME STA Administration - Re-Assessments/Exams Free Text/Narrative Re-Assessment/Exam: 05/29/19 01:53 The patient appears to have some decay around a metallic filling of tooth #15, but I don't see any sign of an abscess. There is no gingival swelling or pointing, and there is no drainage from the tooth. Nevertheless, I will start the patient on penicillin, and prescribe a quantity sufficient to last her until she sees the dentist tomorrow, as well as a prescription for some naproxen that she can begin taking in the morning - it is too early for her to start taking it now, since she recently took some ibuprofen. Departure - Departure Time of Disposition: 01:55 Disposition: Home, Self-Care 01 Condition: Good Clinical Impression: Dental infection - Discharge Information *PRESCRIPTION DRUG MONITORING PROGRAM REVIEWED*: Not Applicable *COPY OF PRESCRIPTION DRUG MONITORING REPORT IN PATIENT BLADIMIR: Not Applicable Prescriptions: Penicillin V Potassium 500 mg PO Q6HR #8 tab Naproxen 500 mg PO Q12H PRN #20 tablet PRN Reason: Pain Referrals: Johan Roper MD [Physician] - Forms: ED Department Discharge Additional Instructions: You were seen in the emergency room for a left upper toothache. On examination, you appear to have decay around a metallic filling of tooth #15. No obvious infection was found, however you have been started on the antibiotic penicillin, and a prescription for both penicillin and the pain reliever naproxen at then sent to the [facility] pharmacy, located on [address]. Take one tablet of penicillin every 6 hours, as prescribed. Take one tablet of naproxen every 12 hours, with food, as prescribed. Follow-up with your dentist at your previously scheduled appointment tomorrow, 05/30/2019. If any other problems, please do not hesitate to return to the ER. Sepsis Event Note - Evaluation Sepsis Screening Result: No Definite Risk - Focused Exam Vital Signs: Vital Signs Temp Pulse Resp BP Pulse Ox 05/29/19 01:25 36.4 C 103 H 16 143/80 H 100 Date Exam was Performed: 05/29/19 Time Exam was Performed: 03:53 - My Orders Last 24 Hours: My Active Orders 05/29/19 01:30 Influenza Vaccine Charge [RC] .DISCHARGE 05/29/19 01:56 Influenza Vaccine Charge [RC] .DISCHARGE - Assessment/Plan Last 24 Hours: My Active Orders 05/29/19 01:30 Influenza Vaccine Charge [RC] .DISCHARGE 05/29/19 01:56 Influenza Vaccine Charge [RC] .DISCHARGE
[2019-05-29] MEDS ORDERED: FLU Vacc QS2019-20(6MOS+)/PF 60 MCG/0.5 ML SYRINGE IM ONE (02:00)
== END 2019-05-29 02:38 | disposition home or self-care (01) ==
LOC: JD.ED 01:21
DX: K04.7 Periapical abscess without sinus (principal); Z23 Encounter for immunization
CPT/HCPCS: 90471; 90686; 99282; A9270; 99283; G0008